=== PATIENT | male | born 1950 | race Two or more races ===

== ENCOUNTER 2019-03-23 20:06 | Emergency (ER) | payer MEDICARE, BC ==
[~2019-03-23] VITALS: Ht 165.1 cm; Wt 85.7 kg
[2019-03-23] MEDS ORDERED: UNOBMED (20:22)
[2019-03-23 20:27] VITALS: BP 150/93
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
[2019-03-23] MEDS ORDERED: ROBAXIN500 MG PO (21:14)
[2019-03-23] MEDS ORDERED: NAPROXEN500 M2 ORAL (21:14)
--- NOTE | 2019-03-23 21:17 | Diagnostic Imaging Report ---
EXAM: XR Right Shoulder Complete, 2 or More Views CLINICAL HISTORY: PAIN TECHNIQUE: Two or more views of the right shoulder. COMPARISON: No relevant prior studies available. FINDINGS: Bones/joints: No acute fracture. Degenerative changes of the glenohumeral and AC joints. Soft tissues: No radiodense foreign body. IMPRESSION: No fracture or dislocation.
--- NOTE | 2019-03-23 21:18 | Diagnostic Imaging Report ---
EXAM: XR Left Shoulder Complete, 2 or More Views CLINICAL HISTORY: PAIN TECHNIQUE: Two or more views of the left shoulder. COMPARISON: No relevant prior studies available. FINDINGS: Bones/joints: No acute fracture. Degenerative changes of the glenohumeral and AC joints. Soft tissues: No radiodense foreign body. IMPRESSION: No fracture or dislocation.
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
[2019-03-23] MEDS ORDERED: Bacitracin Oint UD TOPIC ONE (21:30)
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
[2019-03-23 21:36] VITALS: BP 150/93
--- NOTE | 2019-03-23 21:36 | NUR ---
ER Nurse Note: Pt seen, treated, medically cleared for discharge by ERMD. Discharge instuctions and prescriptions given with repeat verbalization by pt. Emphasized to follow up with primay care provider; take whole course of medication. Explained each medication. All orders completed per ER PA orders. X-ray taken, results explained by ER PA; copies provided per pt request. Pt a&ox4, VSS, no signs of distress. ID band removed. All questions answered per pt's questions. Pt left with all belongings, left with own transportation.
== END 2019-03-23 21:36 | disposition home or self-care (01) ==
LOC: EMR 20:34
DX: S16.1XXA Strain of muscle, fascia and tendon at neck level, initial encounter (principal); S60.222A Contusion of left hand, initial encounter; S80.12XA Contusion of left lower leg, initial encounter; S46.912A Strain of unspecified muscle, fascia and tendon at shoulder and upper arm level, left arm, initial encounter; S46.911A Strain of unspecified muscle, fascia and tendon at shoulder and upper arm level, right arm, initial encounter; V43.52XA Car driver injured in collision with other type car in traffic accident, initial encounter; Y92.410 Unspecified street and highway as the place of occurrence of the external cause
CPT/HCPCS: 72040; 99284